=== PATIENT | male | born 1990 | race Caucasian/White ===

== ENCOUNTER 2024-02-21 20:44 | Emergency (ER) | payer BC ==
[~2024-02-21] VITALS: Ht 182.9 cm; Wt 131.8 kg
[2024-02-21 20:52] VITALS: TEMP 98.3
[2024-02-21 21:02] LABS: COLLECTION METHOD CLEAN CATCH
[2024-02-21 21:11] LABS: URINE APPEARANCE TURBID (CLEAR/HAZY); URINE BLOOD 3+ (NEGATIVE); URINE COLOR RED (YELLOW); URINE GLUCOSE NEGATIVE (NEGATIVE); URINE KETONE TRACE (NEGATIVE); URINE NITRATE NEGATIVE (NEGATIVE); URINE PROTEIN(semi-quant) 1+ (NEGATIVE)
[2024-02-21] MEDS ORDERED: NS 1,000 ML IV ONE ×2 (21:30→22:30)
[2024-02-21 21:59] LABS: BASO # 0.1 K/mm3 (0.0-0.2); EOS # 0.2 K/mm3 (0.0-0.7); EOS % 2.9 % (0.0-4.0); GRAN # 4.2 K/mm3 (1.4-6.5); GRAN % 56.9 % (42.2-75.2); HEMATOCRIT 46.3 % (42.0-52.0); HEMOGLOBIN 14.8 g/dl (13.5-18.0); LYMPH # 1.9 K/mm3 (1.2-3.4); LYMPH % 26.6 % (20.0-51.0); MEAN CELL VOLUME 89 fl (80.0-100.0); MEAN CORPUSCULAR HEMOGLOBIN 28 pg (27-31); MEAN CORPUSCULAR HGB CONC 32 g/dl (33.0-37.0); MEAN PLATELET VOLUME 9.4 fl (7.4-10.4); MONO # 0.9 K/mm3 (0.1-0.6); MONO % 12.2 % (1.7-9.3); PLATELET COUNT 300 K/mm3 (130-400); RED BLOOD COUNT 5.22 M/mm3 (4.20-5.60); REDCELL DISTRIBUTION WIDTH-CV 13.9 % (11.5-14.5)
[2024-02-21 22:25] LABS: ALBUMIN 3.6 g/dL (3.5-5.0); BILIRUBIN,TOTAL 0.3 mg/dL (0.2-1.2); CALCIUM 9.1 mg/dL (8.4-10.2); CREATININE, serum 1.11 mg/dL (0.72-1.25); POTASSIUM 3.8 mEq/L (3.5-4.5); TOTAL PROTEIN 6.6 g/dl (6.2-8.1)
[2024-02-21] MEDS ORDERED: Iohexol 300 - 100 ML VIAL IV ONE (22:35)
[2024-02-22 00:16] VITALS: BP 118/71; PULSE 80
== END 2024-02-22 00:20 | disposition home or self-care (01) ==
LOC: COL.ER 20:44
PROVIDERS: Nurse Practitioner Primary Care; Personal Emergency Response Attendant
DX: N20.1 Calculus of ureter (principal)
CPT/HCPCS: J7030; Q9967